=== PATIENT | female | born 1995 | race Hispanic/Latino ===

== ENCOUNTER 2017-07-02 05:21 | Emergency (ER) | payer MEDICAID ==
[~2017-07-02 05:21] MED LIST: PREN-18 PO
[2017-07-02] MEDS ORDERED: CEFTRIAXONE SODIUM 1 GM ONE (06:14)
[2017-07-02] MEDS ORDERED: AZITHROMYCIN 250 MG TABLET PO ONE (06:15)
[2017-07-02] MEDS ORDERED: KETOROLAC TROMETHAMINE 30MG/ML ONE (06:15)
[2017-07-02] MEDS ORDERED: MORPHINE SULFATE 2 MG/ML 1ML SYG ONE (06:16)
== END 2017-07-02 07:18 | disposition home or self-care (01) ==
LOC: EDH 05:21
DX: H73.012 Bullous myringitis, left ear (principal); J32.9 Chronic sinusitis, unspecified; J45.909 Unspecified asthma, uncomplicated
CPT/HCPCS: 96374; 96375; 99284; J0696; J1885

== ENCOUNTER 2017-08-25 06:43 | Day surgery (SDC) | payer MEDICAID ==
[2017-08-24 15:02] VITALS: BP 101/52
[2017-08-24 15:11] LABS: BASOPHILS % (AUTO) 0.6 % (0.0-5.0); EOSINOPHILS % (AUTO) 2.3 % (0.0-8.0); HEMATOCRIT 38.1 % (36-48); MEAN CORPUSCULAR HGB CONC 34.2 g/dL (32.0-36.0); MEAN CORPUSCULAR VOLUME 90.4 fL (80-100); MONOCYTES % (AUTO) 5.3 % (3.0-13.0); NEUTROPHILS % (AUTO) 58.8 % (40.0-77.0); PLATELET COUNT (AUTO) 297 K/uL (130-400); RED BLOOD CELL COUNT(AUTO) 4.21 MIL/uL (4.00-5.50); RED CELL DISTRIBUTION WIDTH 13.9 % (11.0-15.5); WHITE BLOOD COUNT (AUTO) 6.7 K/uL (4.8-10.8)
[2017-08-24 15:12] LABS: APPEARANCE,URINE Clear (CLEAR); BILIRUBIN,URINE Negative (NEGATIVE); COLOR,URINE Yellow (YELLOW); GLUCOSE, URINE (UA) Negative (NEGATIVE); KETONES,URINE Negative (NEGATIVE); LEUKOCYTE ESTERASE ,URINE Trace (NEGATIVE); NITRATE,URINE Negative (NEGATIVE); OCCULT BLOOD,URINE Negative (NEGATIVE); PROTEIN,URINE Negative (NEGATIVE)
[2017-08-24 15:25] LABS: BACTERIA,URINE Rare /HPF (None Seen); RBC,URINE None Seen /HPF (0-1); SQUAMOUS EPITHELIAL CELL,UR 0-2 /HPF (0-2); WBC,URINE 0-1 /HPF (0-1)
[2017-08-25] VITALS (14 sets, daily range): BP systolic 97–115; BP diastolic 48–78
[~2017-08-25] VITALS: Ht 160 cm; Wt 50.7 kg
[2017-08-25] MEDS ORDERED: LACTATED RINGERS 1000ML 1,000 ML IV ONE (08:15)
[2017-08-25] MEDS ORDERED: DEXAMETHASONE SOD PHOSPHATE 10MG/ML 1ML VIAL ONE (08:41)
[2017-08-25] MEDS ORDERED: ONDANSETRON HCL MDV 20ML 2 MG/ML VIAL ONE (08:41)
[2017-08-25] MEDS ORDERED: LIDOCAINE HCL MPF 1% 5ML VIAL ONE (08:41)
[2017-08-25] MEDS ORDERED: LIDOCAINE PF 2% 5ML ABBOJECT ONE (08:41)
[2017-08-25] MEDS ORDERED: MIDAZOLAM HCL 1 MG/ML 2ML VIAL ONE (08:41)
[2017-08-25] MEDS ORDERED: LIDOCAINE HCL 2% JELLY 5 ML ONE (08:41)
[2017-08-25] MEDS ORDERED: PROPOFOL 10 MG/ML 20ML VIAL IV ONE (08:41)
[2017-08-25] MEDS ORDERED: FENTANYL CITRATE PF 50 MCG/1 ML 2ML VIAL ONE (08:42)
[2017-08-25] MEDS ORDERED: MEPERIDINE-PF 25 MG/ML SYG ONE (09:26)
[2017-08-25] MEDS ORDERED: CALDOLOR 800MG+NS 250ML 250 ML IV ONE (09:26)
== END 2017-08-25 11:15 | disposition home or self-care (01) ==
LOC: DAH 06:43
PROVIDERS: ATTEND Surgery
DX: D24.1 Benign neoplasm of right breast (principal); J45.909 Unspecified asthma, uncomplicated; Z82.49 Family history of ischemic heart disease and other diseases of the circulatory system; Z83.3 Family history of diabetes mellitus
CPT/HCPCS: 19120; 36415; 81001; 84703; 85025; 88307; A4450; A4452; J1100; J1741; J2001; J2175; J2250; J2704; J3010; J3490; J7120

== ENCOUNTER 2021-09-25 18:03 | Emergency (ER) | payer MEDICAID, OTHER ==
[~2021-09-25] VITALS: Ht 157.5 cm; Wt 54.4 kg
[2021-09-25] MEDS ORDERED: CYCLOBENZAPRINE HCL 10 MG TABLET PO ONE (18:30)
[2021-09-25] MEDS ORDERED: KETOROLAC 60 MG VIAL (30MG/ML) IM ONE (18:30)
[2021-09-25] MEDS ORDERED: CYCL10TA16 PO (20:02)
[2021-09-25] MEDS ORDERED: NAPR-1180 PO (20:02)
[2021-09-25 20:08] VITALS: BP 124/71
== END 2021-09-25 20:15 | disposition home or self-care (01) ==
LOC: EDH 18:03
DX: S16.1XXA Strain of muscle, fascia and tendon at neck level, initial encounter (principal); S40.011A Contusion of right shoulder, initial encounter; V43.52XA Car driver injured in collision with other type car in traffic accident, initial encounter; Y93.89 Activity, other specified; Y92.89 Other specified places as the place of occurrence of the external cause; Y99.8 Other external cause status
CPT/HCPCS: 72040; 73030; 81025; 96372; 99284; J1885